=== PATIENT | male | born 1980 | race African-American/Black ===

== ENCOUNTER 2021-04-09 10:34 | Emergency (ER) | payer OTHER ==
[~2021-04-09] VITALS: Ht 172.7 cm; Wt 122.5 kg
[2021-04-09] MEDS ORDERED: DOXYCYCLINE MO100 M1 PO (11:09)
[2021-04-09] MEDS ORDERED: CLINDAMYCIN HC300 MG PO (11:09)
[2021-04-09] MEDS ORDERED: MUPIROCIN22 GM TOP (11:09)
[2021-04-09] MEDS ORDERED: IBUPROFEN IB200 MG PO (11:09)
[2021-04-09] MEDS ORDERED: ACETAMINOPHEN500 MG PO (11:09)
== END 2021-04-09 11:43 | disposition home or self-care (01) ==
LOC: FSED 10:37
DX: T81.30XA Disruption of wound, unspecified, initial encounter (principal); L08.89 Other specified local infections of the skin and subcutaneous tissue
CPT/HCPCS: 99283

== ENCOUNTER 2021-07-17 14:22 | Emergency (ER) | payer OTHER ==
[~2021-07-17] VITALS: Ht 170.2 cm; Wt 131.5 kg
[~2021-07-17 14:22] MED LIST: ACETAMINOPHEN500 MG PO; CLINDAMYCIN HC300 MG PO; DOXYCYCLINE MO100 M1 PO; IBUPROFEN IB200 MG PO; MUPIROCIN22 GM TOP
[2021-07-17] MEDS ORDERED: SODIUM CHLORIDE 0.9% 1000ML 1,000 ML IV SCH (15:45)
[2021-07-17] MEDS ORDERED: Vancomycin IV 1 GM in SODIUM CHLORIDE 0.9% 250ML 250 ML IV ONE (15:45)
[2021-07-17] MEDS ORDERED: DIPHTH/TETANUS/ACEL. PERTUSSIS 0.5 ML SYR IM ONE (15:45)
== END 2021-07-17 16:11 | disposition home or self-care (01) ==
LOC: FSED 14:42
DX: S62.394A Other fracture of fourth metacarpal bone, right hand, initial encounter for closed fracture (principal); S62.396A Other fracture of fifth metacarpal bone, right hand, initial encounter for closed fracture; W22.09XA Striking against other stationary object, initial encounter; Y92.89 Other specified places as the place of occurrence of the external cause; F17.210 Nicotine dependence, cigarettes, uncomplicated
CPT/HCPCS: 90714; 99283

== ENCOUNTER 2023-01-14 06:02 | Emergency (ER) | payer OTHER ==
[~2023-01-14] VITALS: Ht 170.2 cm; Wt 131.5 kg
[2023-01-14 06:07] VITALS: O2SAT 100
[2023-01-14] MEDS ORDERED: KETOROLAC TROMETHAMINE 60 MG/2 ML VIAL ONE (06:11)
[2023-01-14] MEDS ORDERED: ULTRAM 50MG50 MG PO ×2 (06:11→06:23)
[2023-01-14] MEDS ORDERED: KETOROLAC TROMETHAMINE 60 MG/2 ML VIAL IM ONE (06:15)
== END 2023-01-14 06:41 | disposition home or self-care (01) ==
LOC: ER 06:06
DX: S46.812A Strain of other muscles, fascia and tendons at shoulder and upper arm level, left arm, initial encounter (principal); X50.0XXA Overexertion from strenuous movement or load, initial encounter; Y92.89 Other specified places as the place of occurrence of the external cause; F17.210 Nicotine dependence, cigarettes, uncomplicated
CPT/HCPCS: 99282; J1885

== ENCOUNTER 2024-10-15 11:53 | Emergency (ER) | payer OTHER ==
[~2024-10-15] VITALS: Ht 170.2 cm; Wt 157.0 kg
[~2024-10-15 11:53] MED LIST changes: +ULTRAM 50MG50 MG PO
[2024-10-15 12:05] VITALS: PULSE 97; RESP 24; TEMP 98.2; O2SAT 98
[2024-10-15] MEDS: IBUPROFEN 400 MG TAB PO STA (13:06)
[2024-10-15] MEDS ORDERED: ANUSOL-HC25 MG RC (13:28)
== END 2024-10-15 13:43 | disposition home or self-care (01) ==
LOC: FSED 12:14
DX: K62.5 Hemorrhage of anus and rectum (principal); K64.8 Other hemorrhoids; F17.210 Nicotine dependence, cigarettes, uncomplicated
CPT/HCPCS: 99284